=== PATIENT | female | born 1970 | race Hispanic/Latino ===

== ENCOUNTER 2017-02-05 12:01 | Emergency (ER) | payer SELFPAY ==
[~2017-02-05] VITALS: Ht 154.9 cm; Wt 55.0 kg
[~2017-02-05 12:01] MED LIST: DURAGESIC75 MCG/HR TD; METFORMIN500 M1 OR; METFORMIN500 M2 PO; NO HOME MEDS; NORFLEX30 MG/ML PO; PERCOCET1 TA1 OR; PHENERGAN SUPP RE; PLAVIX75 MG OR; PREVACID30 M2 OR; PROPYLTHIOUR50 MG OR; SINGULAIR10 MG OR; THEODUR; ZOFRAN ODT4 MG PO; [UNRECOGNIZED DRUG - REMARK]
[2017-02-05 12:32] LABS: HEMATOCRIT 38.1 % (37.0-47.0); HEMOGLOBIN 13.3 g/dl (12.0-16.0); IMMATURE GRANULOCYTES 0.3 % (0.0-1.0); MEAN CELL VOLUME 88.4 fL CALC (80.0-100.0); MEAN CORPUSCULAR HGB 30.9 pG CALC (26.0-32.0); MEAN CORPUSCULAR HGB CONC 34.9 g/L CALC (32.0-36.0); NEUT# 7.04 thou/uL (2.00-7.15); RED BLOOD COUNT 4.31 mill/uL (4.20-5.60); RED CELL DISTRI WIDTH 12.6 % (11.5-15.5)
[2017-02-05 12:53] LABS: ALBUMIN 4.8 g/dL (3.2-5.0); ALKALINE PHOSPHATASE 107 u/l (38-126); AMYLASE 59 u/l (30-110); ANION GAP 17 (6-22 (CALC)); BILIRUBIN, TOTAL 0.7 mg/dL (0.0-1.4); BUN 16 mg/dL (7-17); BUN/CREATININE RATIO 34 (12-20 (CALC)); CALCIUM 9.9 mg/dL (8.4-10.2); CARBON DIOXIDE 26 mmol/l (22-30); CHLORIDE 99 mmol/l (95-108); CREATININE 0.5 mg/dL (0.5-1.0); GFR > 60 ML/MIN (>=60 (CALC)); GFR FOR AFR.AMER. > 60 ML/MIN (>=60 (CALC)); GLUCOSE 319 mg/dL (65-105); LIPASE 29 u/l (23-300); POTASSIUM 4.1 mmol/l (3.5-5.1); SGOT/AST 18 u/l (14-36); SGPT/ALT 41 u/l (9-52); SODIUM 138 mmol/l (137-146); TOTAL PROTEIN 8.5 g/dL (6.3-8.2)
[2017-02-05 13:05] LABS: MYOGLOBIN 12 ng/mL (0 - 62)
[2017-02-05] MEDS ORDERED: METFORMIN500 M1 PO (13:56)
[2017-02-05] MEDS ORDERED: ZOFRAN ODT4 MG PO (13:56)
[2017-02-05 14:09] VITALS: BP 118/67
== END 2017-02-05 14:28 | disposition home or self-care (01) | DRG 392 ==
LOC: ED 12:01
PROVIDERS: Emergency Medicine
DX: K29.70 Gastritis, unspecified, without bleeding (principal); E11.9 Type 2 diabetes mellitus without complications; R11.2 Nausea with vomiting, unspecified

== ENCOUNTER 2020-07-31 11:05 | Emergency (ER) | payer SELFPAY ==
[~2020-07-31] VITALS: Ht 154.9 cm; Wt 45.5 kg
[~2020-07-31 11:05] MED LIST changes: +METFORMIN500 M1 PO
[2020-07-31 12:22] LABS: HEMATOCRIT 34.2 % (37.0-47.0); HEMOGLOBIN 11.4 g/dl (12.0-16.0); IMMATURE GRANULOCYTES 0.4 % (0.0-5.0); MEAN CELL VOLUME 89.3 fL CALC (80.0-100.0); MEAN CORPUSCULAR HGB 29.8 pG CALC (26.0-32.0); MEAN CORPUSCULAR HGB CONC 33.3 g/dL CAL (32.0-36.0); NEUT# 5.09 thou/uL (2.00-7.15); RED BLOOD COUNT 3.83 mill/uL (4.20-5.60); RED CELL DISTRI WIDTH 12.8 % (11.5-15.5)
[2020-07-31 12:43] LABS: ALKALINE PHOSPHATASE 130 u/l (38-126); BILIRUBIN, TOTAL 0.5 mg/dL (0.0-1.4); BUN 13 mg/dL (7-17); BUN/CREATININE RATIO 28 (12-20 (CALC)); CARBON DIOXIDE 26 mmol/l (22-30); CHLORIDE 96 mmol/l (95-108); CREATININE 0.5 mg/dL (0.5-1.0); GFR > 60 ML/MIN (>=60 (CALC)); GFR FOR AFR.AMER. > 60 ML/MIN (>=60 (CALC)); LIPASE 52 u/l (23-300); TOTAL PROTEIN 7.5 g/dL (6.3-8.2)
[2020-07-31 12:52] LABS: ANION GAP 12 (6-22 (CALC)); SGOT/AST 35 u/l (14-36); SODIUM 130 mmol/l (137-146)
[2020-07-31] MEDS ORDERED: CIPROFLOXACN500 MG PO (14:44)
[2020-07-31 15:40] VITALS: BP 101/69
== END 2020-07-31 15:40 | disposition home or self-care (01) | DRG 392 ==
LOC: ED 11:05
PROVIDERS: Family Medicine
DX: R19.7 Diarrhea, unspecified (principal); E11.9 Type 2 diabetes mellitus without complications; Z20.822 Contact with and (suspected) exposure to COVID-19

== ENCOUNTER 2021-10-04 15:53 | Emergency (ER) | payer SELFPAY ==
[~2021-10-04] VITALS: Ht 154.9 cm; Wt 40.9 kg
[~2021-10-04 15:53] MED LIST changes: +CIPROFLOXACN500 MG PO
[2021-10-04 16:09] VITALS: BP 132/74
[2021-10-04 16:15] VITALS: BP 134/76
[2021-10-04 16:44] LABS: HEMATOCRIT 33.2 % (37.0-47.0); HEMOGLOBIN 11.2 g/dl (12.0-16.0); IMMATURE GRANULOCYTES 0.1 % (0.0-5.0); MEAN CELL VOLUME 89.5 fL CALC (80.0-100.0); MEAN CORPUSCULAR HGB 30.2 pG CALC (26.0-32.0); MEAN CORPUSCULAR HGB CONC 33.7 g/dL CAL (32.0-36.0); NEUT# 6.78 thou/uL (2.00-7.15); RED BLOOD COUNT 3.71 mill/uL (4.20-5.60); RED CELL DISTRI WIDTH 12.6 % (11.5-15.5)
[2021-10-04 17:05] LABS: HCG SERUM/URINE (NEG/POS) NEGATIVE (NEGATIVE)
[2021-10-04 17:07] LABS: ALBUMIN 4.5 g/dL (3.2-5.0); ALKALINE PHOSPHATASE 94 u/l (38-126); AMYLASE 79 u/l (30-110); BILIRUBIN, TOTAL 0.4 mg/dL (0.0-1.4); BUN 17 mg/dL (7-17); BUN/CREATININE RATIO 34 (12-20 (CALC)); CARBON DIOXIDE 30 mmol/l (22-30); CHLORIDE 103 mmol/l (95-108); CREATININE 0.5 mg/dL (0.5-1.0); ETHYL ALCOHOL 0 mg/dl (0-30); GFR > 60 ML/MIN (>=60 (CALC)); GFR FOR AFR.AMER. > 60 ML/MIN (>=60 (CALC)); LIPASE 23 u/l (23-300); POTASSIUM 3.3 mmol/l (3.5-5.1); SGOT/AST 27 u/l (14-36); TOTAL PROTEIN 8.2 g/dL (6.3-8.2)
[2021-10-04 17:09] LABS: ANION GAP 9 (6-22 (CALC)); SODIUM 139 mmol/l (137-146)
[2021-10-04 18:24] LABS: URINE BILIRUBIN - DIPSTICK NEGATIVE (NEGATIVE); URINE BLOOD DIPSTICK NEGATIVE (NEGATIVE); URINE COLOR YELLOW; URINE GLUCOSE - DIPSTICK 100 mg/dL (NEGATIVE); URINE KETONE NEGATIVE (NEGATIVE); URINE LEUK ESTERASE NEGATIVE (NEGATIVE); URINE NITRITE - DIPSTICK NEGATIVE (Negative); URINE PROTEIN - DIPSTICK NEGATIVE (NEG-TRACE); URINE SPECIFIC GRAVITY 1.015; URINE UROBILINOGEN - DIPSTICK 0.2 E.U./dL (0.2)
[2021-10-04] MEDS ORDERED: ZOFRAN4 MG/TAB PO (18:52)
[2021-10-04] MEDS ORDERED: HYDROCO/APAP1 TA9 PO (18:52)
[2021-10-04 19:44] VITALS: BP 151/85
[2021-10-04 19:50] VITALS: BP 151/85
== END 2021-10-04 19:50 | disposition home or self-care (01) | DRG 446 ==
LOC: ED 15:53
DX: K80.20 Calculus of gallbladder without cholecystitis without obstruction (principal); E11.9 Type 2 diabetes mellitus without complications; Z20.822 Contact with and (suspected) exposure to COVID-19
CPT/HCPCS: Q9967

== ENCOUNTER 2021-11-11 17:58 | Emergency (ER) | payer SELFPAY ==
[~2021-11-11] VITALS: Ht 154.9 cm; Wt 45.5 kg
[~2021-11-11 17:58] MED LIST changes: +HYDROCO/APAP1 TA9 PO; +ZOFRAN4 MG/TAB PO
[2021-11-11 19:01] VITALS: BP 92/61
[2021-11-11 19:15] VITALS: BP 101/62
[2021-11-11 19:30] VITALS: BP 103/65
[2021-11-11 19:45] VITALS: BP 95/58
[2021-11-11] MEDS ORDERED: LEVEMIR FL100 UNIT/M SC (19:50)
[2021-11-11] MEDS ORDERED: AMOXICILLIN500 MG PO (19:52)
[2021-11-11 20:00] VITALS: BP 118/74
[2021-11-11 20:13] VITALS: BP 118/74
== END 2021-11-11 20:14 | disposition home or self-care (01) | DRG 607 ==
LOC: ED 17:58
PROC: 0HBNXZZ Excision of Left Foot Skin, External Approach (ICD-10-PCS; principal; 2021-11-11)
DX: S90.425A Blister (nonthermal), left lesser toe(s), initial encounter (principal); E11.9 Type 2 diabetes mellitus without complications; X58.XXXA Exposure to other specified factors, initial encounter; Z79.4 Long term (current) use of insulin